=== PATIENT | male | born 1995 | race Caucasian/White ===

== ENCOUNTER 2017-02-06 20:28 | Emergency (ER) | payer OTHER ==
[2017-02-06 20:35] VITALS: RESP 16; TEMP 98.2
--- NOTE | 2017-02-06 21:02 | EDPHY ---
H & P Time Seen by Provider: 02/06/17 20:41 HPI/ROS: CHIEF COMPLAINT: Right elbow injury HISTORY OF PRESENT ILLNESS: 21-year-old male presents to the emergency department with injury to his right elbow. The patient was at home and tripped over something and fell on his right outstretched hand. His elbows fully extended at the time he thinks that he may have hyperextended. He complains of severe pain and swelling in his right elbow. He applied ice to the area prior to arrival but the pain became so severe that they came to the emergency department for evaluation. He is right-hand dominant. He denies hitting his head or losing consciousness. Denies any other trauma or injury. ROS: Denies numbness or tingling in his fingers, pain in his right elbow or shoulder. Past Medical/Surgical History: Negative Social History: [employer] student from [place] Smoking Status: Never smoked Physical Exam: On examination patient has obvious effusion and swelling specially the medial aspect of his elbow overlying medial epicondyle. He is holding his right elbow and full extension. He has limited flexion secondary to pain. He is able to fully supinate and pronate. Full range of motion of his right wrist and right hand. Normal sensation to light touch with normal 2 point discrimination. Nontender to palpate in the right shoulder. Constitutional: Initial Vital Signs Temperature (C) 36.8 C 02/06/17 20:33 Heart Rate 81 02/06/17 20:33 Respiratory Rate 16 02/06/17 20:33 Blood Pressure 127/106 H 02/06/17 20:33 O2 Sat (%) 97 02/06/17 20:33 O2 Delivery Mode Room Air Allergies/Adverse Reactions: No Known Allergies Allergy (Unverified 10/01/14 00:34) MDM/Departure - MDM Imaging Results: Imaging Impressions Elbow X-Ray 02/06/17 21:00 Impression: Normal. Imaging: I viewed and interpreted images myself Procedures: Patient was placed in long-arm Ortho Glass splint and sling and examined post application in good placement with normal STUDENT SPECIALIST. ED Course/Re-evaluation: 21-year-old male presents to the emergency department with right elbow injury. X -rays reveal no fractures. The patient however has significant swelling specially the medial aspect of his elbow and I did explain that he could possibly have collateral ligament injury. He was placed in a long-arm Ortho Glass splint and given a sling and given orthopedic referral and he will follow up this week. Father was also at bedside. The case was discussed with Dr. Costa Pickering, secondary supervising physician, who did not directly evaluate the patient but agrees with treatment and plan. - Depart Disposition: Home, Routine, Self-Care Clinical Impression: Sprain of right elbow Qualifiers: Encounter type: initial encounter Qualified Code(s): S53.401A - Unspecified sprain of right elbow, initial encounter Condition: Good Instructions: Elbow Sprain (ED) Additional Instructions: Keep splint and sling on until follow up with orthopedic surgeon this week. Ibuprofen 600mg every 8 hours for pain as directed. Ice to help reduce swelling. Return if you develop numbness or tingling in your fingers, increasing pain, or if you feel worse in any way. Referrals: Jamie Pratt MD [Medical Doctor] - 2-3 days without fail (Orthopedic surgeon on-call)
[2017-02-06 22:26] VITALS: BP 141/92; PULSE 78; O2SAT 96
== END 2017-02-06 22:25 | disposition home or self-care (01) ==
DX: S53.401A Unspecified sprain of right elbow, initial encounter (principal); W01.0XXA Fall on same level from slipping, tripping and stumbling without subsequent striking against object, initial encounter; Y92.099 Unspecified place in other non-institutional residence as the place of occurrence of the external cause
CPT/HCPCS: A4565

== ENCOUNTER 2017-10-26 10:03 | Emergency (ER) | payer OTHER ==
--- NOTE | 2017-10-26 10:42 | EDPHY ---
H & P Stated Complaint: [facility], [facility] lac, xray done. no hemo Time Seen by Provider: 10/26/17 10:25 HPI/ROS: CHIEF COMPLAINT: Chin laceration, mandible pain HISTORY OF PRESENT ILLNESS: 22-year-old male arrives via private vehicle. 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 Sustained laceration, seen at [facility] and referred to the ER for further evaluation. He is complaining of laceration as well as pain to the right TMJ with range of motion. He notes dental malalignment "my teeth do not feel like they are lining up up correctly". He was unhelmeted. His tetanus is up-to-date. He denies: Loss of consciousness, alcohol or drug use, midline C-spine pain, nausea, vomiting, headache, syncope, chest pain or trauma, back pain or trauma, abdominal pain or trauma, straddle injury. REVIEW OF SYSTEMS: 10 systems reviewed and negative with the exception of the elements mentioned in the history of present illness PAST MEDICAL/SURGICAL HISTORY: no anticoagulant use, no relevant medical/ surgical history. Tetanus up-to-date SOCIAL HISTORY: denies alcohol use at time of incident PHYSICAL EXAM 1) GENERAL: Well-developed, well-nourished, alert and oriented.. Answering questions appropriately. 2) HEAD: Normocephalic, atraumatic 3) HEENT: Pupils equal, round, reactive to light bilaterally. Negative [place]. Nasopharynx, oropharynx, clear. No deformity or angulation of nose. No septal hematoma. No rhinorrhea. No oral trauma. Midline chin laceration measuring 4 cm. Ears bilaterally with normal tympanic membranes. No hemotympanum. No fluid or blood in the external auditory canal. No raccoon eyes. No Beasley sign. Teeth are not grossly malaligned, right TMJ and angle of mandible tender to palpation. Pain with range of motion same location. No trismus or drooling 4) NECK: No cervical collar is on. Posterior cervical spine is nontender, no stepoff, no effusion. Full range of motion which does not elicit any midline cervical spine pain, no posterior midline tenderness, no step-off. 5) LUNGS: Clear to auscultation bilaterally, no wheezes, no rhonchi, no retractions. No obvious signs of trauma. No chest wall pain. No flaring, no grunting. Moving symmetrically. No crepitus. 6) HEART: [Regular rate and rhythm, 7) ABDOMEN: No guarding, no rebound, no focal tenderness, no peritoneal signs, no signs of trauma, no ecchymosis 8) MUSCULOSKELETAL: Moving all extremities, no focal areas of tenderness, no obvious trauma. 9) BACK: No midline vertebral tenderness, no fluctuance, no step-off, no obvious trauma, no visual or palpable abnormality. 10) SKIN: No laceration. No abrasion DIFFERENTIAL DIAGNOSIS: In no particular order including but not limited to open mandible fracture, closed mandible fracture, mandibular dislocation - Personal History Current Tetanus/Diphtheria Vaccine: Yes Tetanus Vaccine Date: LESS THAN 10 YEARS - Medical/Surgical History Hx Asthma: No Hx Chronic Respiratory Disease: No Hx Diabetes: No Hx Cardiac Disease: No Hx Renal Disease: No Hx Cirrhosis: No Hx Alcoholism: No Hx HIV/AIDS: No Hx Splenectomy or Spleen Trauma: No Other PMH: ACNE, DEPRESSION/ANXIETY - Social History Smoking Status: Never smoked Constitutional: Initial Vital Signs Temperature (C) 36.9 C 10/26/17 10:20 Heart Rate 84 10/26/17 10:20 Respiratory Rate 16 10/26/17 10:20 Blood Pressure 122/76 H 10/26/17 10:20 O2 Sat (%) 95 10/26/17 10:20 O2 Delivery Mode Room Air Allergies/Adverse Reactions: No Known Allergies Allergy (Verified 10/26/17 10:19) Home Medications: Medication Instructions Recorded Hydrocodone/APAP 5/325 [[place] 1 tab PO Q6 PRN #7 tab 10/26/17 5/325 (RX)] MIRTAZAPINE 10/26/17 Medical Decision Making - Diagnostics Imaging Results: Imaging Impressions Face CT 10/26/17 10:38 Impression: No acute osseous abnormality. Findings and recommendations discussed with Thao Leiva at 1102 hour, . Images reviewed myself Procedures: Procedure: Laceration repair. I explained the indications, risks and benefits for both laceration repair and anesthetic administration. Verbal consent was obtained from the patient . The laceration on the chin was anesthetized using 0.5% bupivicaine with epinephrine . After anesthetic administered the patient was observed for a period of time and had no apparent adverse effects. The wound was cleaned, prepped, draped in normal sterile fashion and explored to its base. No foreign body seen, no foreign bodies palpated. The wound was repaired with 3 simple interrupted 6 0 Vicryl subcutaneous sutures in 10 simple interrupted 6 0 Prolene sutures. The wound repair was complex. The procedure was performed by myself. Patient has been informed that scarring will occur, although efforts have been made to minimize this. ED Course/Re-evaluation: 10:39 a.m.: Recommended CT of the maxillofacial region as patient notes dental malalignment, had direct trauma onto his midline mandible, complaining of 2 pain to the right mandibular condyle. Indications risks benefits discussed with patient he consents. Negative [place] head and C-spine decision-making tools. I saw this patient independently based on established practice protocols. Care of patient under supervision of secondary supervising physician Dr Mcnally . 11:23 a.m.: Re-evaluation. Wound closed primarily in the ER. No evidence of fracture on x-ray. I am starting the patient on prophylactic antibiotics and recommending follow up with oral surgery Dr. Jesus Devlin as he notes that his jaw feels abnormal although there is no evidence of fracture no definitive dental malalignment on my exam. No trismus no drooling. Departure - Departure Disposition: Home, Routine, Self-Care Clinical Impression: Fall from skateboard, Laceration of chin Condition: Good Instructions: Care For Your Stitches (ED), Laceration (ED) Referrals: Jesus Devlin DDS [Doctor of Dental Surgery] - 5-7 days, call for appt. ( Dr. Jesus Devlin is an oral surgeon) Return, to the ER in 5 days for suture removal [Other] - As per Instructions Prescriptions: Hydrocodone/APAP 5/325 [[place] 5/325 (RX)] 1 tab PO Q6 PRN #7 tab PRN Reason: Pain, Severe
[2017-10-26 12:22] VITALS: BP 120/69
== END 2017-10-26 12:22 | disposition home or self-care (01) ==
PROC: 0HQ1XZZ Repair Face Skin, External Approach (ICD-10-PCS; principal; 2017-10-26)
DX: S01.81XA Laceration without foreign body of other part of head, initial encounter (principal); V00.131A Fall from skateboard, initial encounter; Y92.9 Unspecified place or not applicable